=== PATIENT | female | born 1980 | race Caucasian/White ===

== ENCOUNTER 2019-09-16 21:34 | Emergency (ER) | payer SELFPAY ==
[~2019-09-16] VITALS: Ht 162.5 cm; Wt 66.7 kg
[~2019-09-16 21:34] MED LIST: AMIT50TA3 PO; CYCL10TA9 PO; GABA100T; HYDR-707 PO; HYDR1CAP2 PO; IBP200T; METH4TAB PO; OMEP20CA18 PO; PARO20TA57; PARO20TA57 PO; PROP1TAB77; ZOLP5TAB PO
[2019-09-16] MEDS ORDERED: LACTATED RINGERS 1,000 ML IV ONE ×3 (21:54→23:35)
[2019-09-16] MEDS ORDERED: ONDANSETRON 4 MG/2 ML (SDV) Z0FRAN ONE (21:55)
[2019-09-16 22:13] LABS: BASOPHILS # (AUTO) 0.1 10^3/uL (0.0-0.1); BASOPHILS % (AUTO) 1 % (0-10); EOSINOPHILS # (AUTO) 0.1 10^3/uL (0.0-0.3); EOSINOPHILS % (AUTO) 1 % (0-10); HEMATOCRIT 46 % (35-52); LYMPHOCYTES # (AUTO) 3.8 X 10^3 (1.0-4.0); LYMPHOCYTES % (AUTO) 32 % (12-44); MEAN CORPUSCULAR HEMOGLOBIN 28 PG (25-34); MEAN CORPUSCULAR HGB CONC 35 G/DL (32-36); MEAN CORPUSCULAR VOLUME 81 FL (80-99); MEAN PLATELET VOLUME 9.5 FL (7.4-10.4); MONOCYTES # (AUTO) 1.2 X 10^3 (0.0-1.0); MONOCYTES % (AUTO) 10 % (0-12); NEUTROPHILS # (AUTO) 6.9 X 10^3 (1.8-7.8); NEUTROPHILS % (AUTO) 57 % (42-75); PLATELET COUNT 347 10^3/uL (130-400); RED CELL DISTRIBUTION WIDTH 14.1 % (10.0-14.5)
[2019-09-16] MEDS ORDERED: ONDANSETRON 4 MG/2 ML (SDV) Z0FRAN IVP ONE (22:15)
[2019-09-16 22:24] LABS: FIBRIN DEGRADATION PRODUCTS 0.37 UG/ML (0.00-0.49); INR 0.9 (0.8-1.4); PROTHROMBIN TIME PATIENT 12.8 SEC (12.2-14.7)
[2019-09-16 22:29] LABS: ALANINE AMINOTRANSFERASE 16 U/L (0-55); ALBUMIN 4.2 GM/DL (3.2-4.5); ALKALINE PHOSPHATASE 103 U/L (40-136); AMYLASE 36 U/L (25-125); BILIRUBIN,TOTAL 0.3 MG/DL (0.1-1.0); BUN/CREATININE RATIO 12; CALCIUM 9.3 MG/DL (8.5-10.1); CARBON DIOXIDE 19 MMOL/L (21-32); CHLORIDE 105 MMOL/L (98-107); CREATININE SERUM 0.77 MG/DL (0.60-1.30); GFR ESTIMATED > 60; GLUCOSE 111 MG/DL (70-105); LIPASE 18 U/L (8-78); POTASSIUM 3.6 MMOL/L (3.6-5.0); SODIUM 140 MMOL/L (135-145); TOTAL PROTEIN 7.6 GM/DL (6.4-8.2)
[2019-09-16 22:32] LABS: ERYTHROCYTE SEDIMENTATION RATE 4 MM/HR (0-20)
--- NOTE | 2019-09-16 22:38 | ED General ---
General Chief Complaint: Abdominal/GI Problems Stated Complaint: HEADACHED,N/V,SOA Nursing Triage Note: pt amb to rm 9 with complaint of abd pain, n/v/d, headache, soa, and dizziness that started today. 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 Nursing Sepsis Screen: No Definite Risk Source of Information: Patient History of Present Illness Date Seen by Provider: Sep 16, 2019 Time Seen by Provider: 21:45 Initial Comments PT ARRIVES VIA POV FROM HOME, AMBULATES IN ON HER OWN WITHOUT DIFFICULTY PT WITH MULTITUDE OF COMPLAINTS STATES MAIN COMPLAINT IS HEADACHE STATES SHE HAS HAD A SLIGHT HEADACHE OFF AND ON ALL DAY, BUT IT BECAME SEVERE AROUND 1929 TONIGHT--RATES PAIN 10/10, BUT HAS NOT ATTEMPTED TO TAKE ANYTHING FOR HER HEADACHE. STATES SHE HAS HAD HEADACHES ON OCCASION, BUT NOT THIS BAD STATES THE HEADACHE IS NOW STARTING TO MAKE HER NAUSEATED AND SHE VOMITED X 10 TONIGHT STATES HER HEADACHE IS ALSO MAKING HER DIZZY HAD 3 EPISODES OF DIARRHEA YESTERDAY BUT NONE TODAY NO SIGNIFICANT ABDOMINAL PAIN, STATES NOW HER STOMACH MUSCLES ARE A LITTLE SORE FROM VOMITING STATES SHE SLEPT MOST OF THE DAY NO FEVER NO NECK PAIN OR STIFFNESS NO VISION CHANGES STATES IT ALSO MAKES HER FEEL A LITTLE SHORT OF BREATH NO COUGH NO CHEST PAIN NO PALPITATIONS NO PARESTHESIAS OR MOTOR DEFICITS HAS HAD A SLIGHT SORE THROAT HAS HAD MILD ALLERGY SYMPTOMS WITH CLEAR RUNNY NOSE, BUT NO SINUS PAIN STATES SHE WORKS AT [employer] IN [place], [place] STATES THAT "2 PEOPLE TESTED POSITIVE" FOR COVID-19 CORONAVIRUS. HOWEVER, PT STATES SHE HAS NOT WORKED FOR THE LAST 2 WEEKS, WENT BACK TO WORK ON SATURDAY AND MONDAY 09/11 AND 09/13/19 STATES SHE HAS NO IDEA IF SHE WORKED WITH OR NEAR THESE PERSONS, THEN LATER STATES THAT "THEY WERE SICK SOMETIME BEFORE THAT" BUT STATES SHE HAS "NO IDEA" WHEN THESE PEOPLE TESTED POSITIVE, AND LATER STATES "THEY SAID THEY WORKED IN A DIFFERENT AREA" PT HAS NOT TAKEN ANY OF HER MEDICATIONS TODAY PCP: STEPHANIE MENDEZ Allergies and Home Medications Allergies Coded Allergies: No Known Drug Allergies (Verified , 05/24/08) Home Medications Butalb/Acetaminophen/Caffeine 1 Each Tablet, 1-2 EACH PO Q6 Prescribed by: ALLEN PATEL on 09/16/19 4990 Cyclobenzaprine HCl 10 Mg Tablet, 10 MG PO Q8H Prescribed by: ALLEN PATEL on 12/28/15240 Methylprednisolone 4 Mg Tab.ds.pk, 4 MG PO UD Prescribed by: ALLEN PATEL on 12/28/15240 Omeprazole 20 Mg Capsule.dr, 20 MG PO DAILY, (Reported) Ondansetron 4 Mg Tab.rapdis, 4 MG PO Q4H Prescribed by: ALLEN PATEL on 09/16/192353 Zolpidem Tartrate 5 Mg Tablet, 5 MG PO HS PRN for INSOMNIA, (Reported) Patient Home Medication List Home Medication List Reviewed: Yes Review of Systems Review of Systems Constitutional: see HPI; No chills, No diaphoresis; dizziness; No fever; malaise EENTM: see HPI, throat pain, other Respiratory: see HPI; No cough, No dyspnea on exertion, No phlegm; short of breath; No wheezing Cardiovascular: no symptoms reported; No chest pain, No edema, No palpitations, No syncope Gastrointestinal: see HPI, diarrhea, nausea, vomiting Genitourinary: no symptoms reported Musculoskeletal: no symptoms reported Skin: no symptoms reported; No rash Psychiatric/Neurological: See HPI, Headache; Denies Numbness, Denies Paresthesia, Denies Seizure, Denies Tingling, Denies Tremors, Denies Weakness Hematologic/Lymphatic: No Symptoms Reported Immunological/Allergic: no symptoms reported Past Xhjykmt-Rarbol-Mrxxxz Hx Past Med/Social Hx: Reviewed and Corrections made Patient Social History Alcohol Use: Occasionally Uses Recreational Drug Use: No Smoking Status: Current Everyday Smoker (1 PPD) Type Used: Cigarettes Recent Foreign Travel: No Contact w/Someone Who Travel: No Recent Infectious Disease Expo: No Recent Hopitalizations: Yes Immunizations Up To Date Tetanus Booster (TDap): Unknown PED Vaccines UTD: Yes Past Medical History Surgeries: Yes (HYST/BSO; THORACIC SURGERY FOR NEUROFIBROMAS; X 2) Appendectomy, Section, Gallbladder, Hysterectomy, Oophorectomy, Orthopedic Respiratory: No Cardiac: Yes High Cholesterol, Hypertension Neurological: Yes (NEUROFIBROMATOSIS) 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 oz. 61.257379so; 25.00 BMI Method:Stated General Appearance: No Apparent Distress, WD/WN, Other (WALKS IN ON HER OWN. DOES NOT APPEAR TO BE IN ANY DISCOMFORT OR DISTRESS AND DOES NOT APPEAR ILL. REEKS OF CIGARETTES. ) HEENT: PERRL/EOMI, TMs Normal, Normal ENT Inspection, Pharynx Normal, Other (EDENTULOUS) Neck: Full Range of Motion, Normal Inspection, Non Tender, Supple; No Carotid Bruit, No JVD Respiratory: Chest Non Tender, Normal Breath Sounds, No Accessory Muscle Use, No Respiratory Distress Cardiovascular: Regular Rate, Rhythm, No Edema, No JVD, No Murmur, Normal Peripheral Pulses Gastrointestinal: Normal Bowel Sounds, No Organomegaly, No Pulsatile Mass, Non Tender, Soft Back: Normal Inspection, No CVA Tenderness, No Vertebral Tenderness Extremity: Normal Capillary Refill, Normal Inspection, Normal Range of Motion, Non Tender, No Calf Tenderness, No Pedal Edema Neurologic/Psychiatric: Alert, Oriented x3, No Motor/Sensory Deficits, Normal Mood/Affect, 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 Norm as Tested; No Abnormal Cerebellar Tests Reflexes: 1+ Bicep (R), 1+ Bicep (L), 1+ Knee (R), 1+ Knee (L) Skin: Normal Color, Warm/Dry; No Rash Progress/Results/Core Measures Suspected Sepsis Recent Fever Within 48 Hours: No Infection Criteria Present: None New/Unexplained Altered Menta: No Sepsis Screen: No Definite Risk SIRS Temperature: Pulse: 92 Respiratory Rate: 22 Laboratory Tests 09/16/19 21:50: White Blood Count 12.0H Blood Pressure 141 /100 Mean: 114 Laboratory Tests 09/16/19 21:50: Creatinine 0.77, INR Comment 0.9, Platelet Count 347, Total Bilirubin 0.3 Results/Orders Lab Results Laboratory Tests Test 09/16/19 21:50 09/16/19 22:56 Range/Units White Blood Count 12.0 H 4.3-11.0 10^3/uL Red Blood Count 5.75 4.35-5.85 10^6/uL Hemoglobin 16.0 11.5-16.0 G/DL Hematocrit 46 35-52 % Mean Corpuscular Volume 81 80-99 FL Mean Corpuscular Hemoglobin 28 25-34 PG Mean Corpuscular Hemoglobin Concent 35 32-36 G/DL Red Cell Distribution Width 14.1 10.0-14.5 % Platelet Count 347 130-400 10^3/uL Mean Platelet Volume 9.5 7.4-10.4 FL Neutrophils (%) (Auto) 57 42-75 % Lymphocytes (%) (Auto) 32 12-44 % Monocytes (%) (Auto) 10 0-12 % Eosinophils (%) (Auto) 1 0-10 % Basophils (%) (Auto) 1 0-10 % Neutrophils # (Auto) 6.9 1.8-7.8 X 10^3 Lymphocytes # (Auto) 3.8 1.0-4.0 X 10^3 Monocytes # (Auto) 1.2 H 0.0-1.0 X 10^3 Eosinophils # (Auto) 0.1 0.0-0.3 10^3/uL Basophils # (Auto) 0.1 0.0-0.1 10^3/uL Erythrocyte Sedimentation Rate 4 0-20 MM/HR Prothrombin Time 12.8 12.2-14.7 SEC INR Comment 0.9 0.8-1.4 Activated Partial Thromboplast Time 26 24-35 SEC D-Dimer 0.37 0.00-0.49 UG/ML Sodium Level 140 135-145 MMOL/L Potassium Level 3.6 3.6-5.0 MMOL/L Chloride Level 105 98-107 MMOL/L Carbon Dioxide Level 19 L 21-32 MMOL/L Anion Gap 16 H 5-14 MMOL/L Blood Urea Nitrogen 9 7-18 MG/DL Creatinine 0.77 0.60-1.30 MG/DL Estimat Glomerular Filtration Rate > 60 BUN/Creatinine Ratio 12 Glucose Level 111 H 70-105 MG/DL Calcium Level 9.3 8.5-10.1 MG/DL Corrected Calcium 9.1 8.5-10.1 MG/DL Magnesium Level 2.0 1.6-2.4 MG/DL Total Bilirubin 0.3 0.1-1.0 MG/DL Aspartate Amino Transf (AST/SGOT) 15 5-34 U/L Alanine Aminotransferase (ALT/SGPT) 16 0-55 U/L Alkaline Phosphatase 103 40-136 U/L Lactate Dehydrogenase 199 125-220 U/L C-Reactive Protein High Sensitivity 0.35 0.00-0.50 MG/DL Total Protein 7.6 6.4-8.2 GM/DL Albumin 4.2 3.2-4.5 GM/DL Amylase Level 36 25-125 U/L Lipase 18 8-78 U/L Serum Alcohol < 10 <10 MG/DL Monoscreen NEGATIVE NEGATIVE Group A Streptococcus Screen NEGATIVE NEGATIVE Urine Color YELLOW Urine Clarity SL CLOUDY Urine pH 6.5 5-9 Urine Specific Fisher 1.020 1.016-1.022 Urine Protein NEGATIVE NEGATIVE Urine Glucose (UA) NEGATIVE NEGATIVE Urine Ketones NEGATIVE NEGATIVE Urine Nitrite NEGATIVE NEGATIVE Urine Bilirubin NEGATIVE NEGATIVE Urine Urobilinogen 0.2 < = 1.0 MG/DL Urine Leukocyte Esterase 1+ H NEGATIVE Urine RBC (Auto) NEGATIVE NEGATIVE Urine RBC 0-2 /HPF Urine WBC 0-2 /HPF Urine Squamous Epithelial Cells 0-2 /HPF Urine Crystals NONE /LPF Urine Bacteria TRACE /HPF Urine Casts NONE /LPF Urine Mucus SMALL H /LPF Urine Culture Indicated NO Urine Opiates Screen NEGATIVE NEGATIVE Urine Oxycodone Screen NEGATIVE NEGATIVE Urine Methadone Screen NEGATIVE NEGATIVE Urine Propoxyphene Screen NEGATIVE NEGATIVE Urine Barbiturates Screen NEGATIVE NEGATIVE Ur Tricyclic Antidepressants Screen NEGATIVE NEGATIVE Urine Phencyclidine Screen NEGATIVE NEGATIVE Urine Amphetamines Screen NEGATIVE NEGATIVE Urine Methamphetamines Screen NEGATIVE NEGATIVE Urine Benzodiazepines Screen NEGATIVE NEGATIVE Urine Cocaine Screen NEGATIVE NEGATIVE Urine Cannabinoids Screen NEGATIVE NEGATIVE Micro Results Microbiology 09/16/19 Influenza Types A,B Antigen (GERARDO) - Final, Complete My Orders Orders - ALLEN PATEL DO Lactated Ringers (Lr 1000 Ml Iv Solution (09/16/19 21:54) Ondansetron Injection (Zofran Injectio (09/16/19 21:55) Ed Iv/Invasive Line Start (09/16/19 22:01) Monitor-Rhythm Ecg Trace Only (09/16/19 22:01) Ct Head Wo-R/O Stroke (09/16/19 22:01) Alcohol (09/16/19 22:01) Amylase (09/16/19 22:01) Cbc With Automated Diff (09/16/19 22:) Comprehensive Metabolic Panel (09/16/19 22:) Hs C Reactive Protein (09/16/19 22:) Fibrin Degradation Products (09/16/19 22:) Drug Screen Stat (Urine) (09/16/19 22:) Lipase (09/16/19 22:) Magnesium (09/16/19 22:) Monotest (09/16/19 22:) Protime With Inr (09/16/19:) Partial Thromboplastin Time (09/16/19 22:) Rapid Strep A Screen (09/16/19 22:) Ua Culture If Indicated (09/16/19 22:) Blood Culture (09/16/19:) Influenza A And B Antigens (09/16/19 22:) Erythrocyte Sedimentation Rate (09/16/19 22:) Chest 1 View, Ap/Pa Only (09/16/19 22:) Ondansetron Injection (Zofran Injectio (09/16/19 22:15) Ed Iv/Invasive Line Start (09/16/19 22:01) Lactated Ringers (Lr 1000 Ml Iv Solution (09/16/19 22:01) LDH (09/16/19 22:01) Coronavirus Sars-Cov-2 So 2018 (09/16/19 22:01) Ketorolac Injection (Toradol Injection) (09/16/19 23:45) Orphenadrine Injection (Norflex Injectio (09/16/19 23:45) Ed Iv/Invasive Line Start (09/16/19 23:35) Lactated Ringers (Lr 1000 Ml Iv Solution (09/16/19 23:35) Medications Given in ED Current Medications Medications Dose Ordered Sig/Nikkie Route Start Time Stop Time Status Last Admin Dose Admin Ketorolac Tromethamine 30 mg ONCE ONCE IVP 09/16/19 23:45 09/16/19 23:46 DC 09/17/19 00:32 30 MG Lactated Ringer's 1,000 ml @ ud STK-MED ONCE IV 09/16/19 21:54 09/16/19 21:56 DC 09/16/19 22:02 1,000 MLS/HR Ondansetron HCl 4 mg STK-MED ONCE .ROUTE 09/16/19 21:55 09/16/19 21:57 DC 09/16/19 22:02 4 MG Orphenadrine Citrate 60 mg ONCE ONCE IV 09/16/19 23:45 09/16/19 23:46 DC 09/17/19 00:32 60 MG Vital Signs/I&O 09/16/19 09/16/19 09/17/19 21:41 23:18 00:33 Temp 36.6 Pulse 92 98 68 Resp 22 18 16 B/P (MAP) 141/100 (114) 111/53 (72) 112/68 Pulse Ox 98 97 99 O2 Delivery Room Air Room Air Room Air Capillary Refill : Less Than 3 Seconds Blood Pressure Mean: 114 Progress Note : Progress Note COVID -19 TESTING PERFORMED, PPE WORN AT ALL TIMES SYMPTOMS IMPROVED AT DISMISSAL Diagnostic Imaging Comments CXR--NO ACUTE PROCESS, PENDING RADIOLOGIST REVIEW CT HEAD--NO ACUTE PROCESS, PER [facility] VIA FAX AT 4 Reviewed: Reviewed by Me Departure Impression Primary Impression: Headache Additional Impression: COVID P.U.I. Disposition: HOME, SELF-CARE Condition: Improved Departure-Patient Inst. Referrals: SELINA REBOLLEDO MD (PCP/Family) Primary Care Physician Patient Instructions: Coronavirus Disease 2019 (COVID-19) (DC), Headache, Adult (DC) Add. Discharge Instructions: HOME, REST LOTS OF CLEAR LIQUIDS TYLENOL AND MOTRIN NEEDED FOR PAIN YOU AND ALL [employer]ERS NEED TO QUARANTINE FOR THE NEXT 2 WEEKS OR UNTIL RELEASED BY HEALTH DEPARTMENT FOLLOW UP WITH [facility] IN 2-3 DAYS IF NO BETTER, RETURN TO ER IF WORSE All discharge instructions reviewed with patient and/or family. Voiced understanding. Scripts Ondansetron (Ondansetron Odt) 4 Mg Tab.rapdis 4 MG PO Q4H for Nausea/Vomiting, #10 TAB Prov: ALLEN PATEL DO 09/16/19 Butalb/Acetaminophen/Caffeine (Esgic 50-325-40 mg Tablet) 1 Each Tablet 1-2 EACH PO Q6, #10 TAB Prov: ALLEN PATEL DO 09/16/19 ALLEN PATEL DO Sep 16, 2019 22:38
[2019-09-16 23:18] VITALS: BP 111/53
[2019-09-16] MEDS ORDERED: ORPHENADRINE 60 MG/2 ML (NORFLEX) AMP (ED ONLY) IV ONE (23:45)
[2019-09-16] MEDS ORDERED: KETOROLAC 30 MG/ML VIAL IVP ONE (23:45)
[2019-09-16 23:49] LABS: BILIRUBIN,URINE NEGATIVE (NEGATIVE); CLARITY,URINE SL CLOUDY; COLOR,URINE YELLOW; GLUCOSE, URINE (UA) NEGATIVE (NEGATIVE); KETONES,URINE NEGATIVE (NEGATIVE); LEUKOCYTE ESTERASE ,URINE 1+ (NEGATIVE); NITRITE,URINE NEGATIVE (NEGATIVE); PH,URINE 6.5 (5-9); PROTEIN,URINE NEGATIVE (NEGATIVE)
[2019-09-16] MEDS ORDERED: BUTA-249 PO (23:54)
[2019-09-16] MEDS ORDERED: ONDA4TAB11 PO (23:54)
[2019-09-16 23:59] LABS: RBC,URINE 0-2 /HPF
[2019-09-17] LABS: BACTERIA,URINE TRACE /HPF; SQUAMOUS EPITHELIAL CELL,UR 0-2 /HPF; WBC,URINE 0-2 /HPF
[2019-09-17 00:10] LABS: AMPHETAMINE SCREEN, URINE NEGATIVE (NEGATIVE); BARBITURATE SCREEN URINE NEGATIVE (NEGATIVE); BENZODIAZEPINES SCREEN URINE NEGATIVE (NEGATIVE); CANNABINOID SCREEN, URINE NEGATIVE (NEGATIVE); COCAINE SCREEN URINE NEGATIVE (NEGATIVE); METHADONE STAT NEGATIVE (NEGATIVE); METHAMPHETAMINE SCREEN URINE S NEGATIVE (NEGATIVE); OPIATE SCREEN URINE NEGATIVE (NEGATIVE); OXYCODONE STAT NEGATIVE (NEGATIVE); PROPOXYPHENE STAT NEGATIVE (NEGATIVE); TRICYCLIC ANTIDEPRESSANTS SCRE NEGATIVE (NEGATIVE)
[2019-09-17 00:33] VITALS: BP 112/68
--- NOTE | 2019-09-17 05:36 | Diagnostic Imaging Report ---
PROCEDURE: CT head wo r/o stroke. TECHNIQUE: Multiple contiguous axial images were obtained through the brain without the use of intravenous contrast. Auto Exposure Controls were utilized during the CT exam to meet ALARA standards for radiation dose reduction. INDICATION: Headache There is no mass, shift of the midline or hemorrhage to suggest an acute intracranial abnormality. The ventricles are not abnormally dilated and stable in size when compared to the prior exam of 08/04/09. The bone windows show no evidence for a fracture or for a destructive lesion. The orbits are symmetrical and within normal limits. The sinuses, where visualized, are generally clear. IMPRESSION: 1. There is no evidence for an acute intracranial abnormality. 2. If clinical concern regarding an underlying abnormality persists, then MRI would be recommended for further study. Dictated by: Dictated on workstation # [id number]
--- NOTE | 2019-09-17 05:43 | Diagnostic Imaging Report ---
EXAMINATION: Portable erect AP chest at 1053 PM INDICATION: Shortness of breath The heart size is within normal limits and stable when compared to 12/28/2015. There are few carotid bronchovascular markings in both lung bases but there is no evidence for failure, pneumonia or for pleural effusion. The mediastinum is not widened. The osseous structures are intact. IMPRESSION: There is no evidence for active disease. Dictated by: Dictated on workstation # [id number]
== END 2019-09-17 00:34 | disposition home or self-care (01) ==
LOC: EDUNIT# 21:34 → ER 21:37
DX: R51 Headache (principal); K21.9 Gastro-esophageal reflux disease without esophagitis; F17.210 Nicotine dependence, cigarettes, uncomplicated; Z20.828 Contact with and (suspected) exposure to other viral communicable diseases; Z79.52 Long term (current) use of systemic steroids
CPT/HCPCS: 36415; 70450; 71045; 80053; 80306; 80320; 81000; 82150; 83615; 83690; 83735; 85025; 85379; 85610; 85652; 85730; 86141; 86308; 87040; 87430; 87635; 87804; 93041; 96374; 96375

== ENCOUNTER → 2022-09-05 | Outpatient (CLI) | payer OTHER ==
[~2022-09-05] MED LIST changes: +BARIUM for suspension 96% w/w (Vanilla Silq Medium Density) PO ONE; +BARIUM for suspension 98% w/w (Vanilla Silq High Density) PO ONE; +BUTA-249 PO; +CYCL10TA25 PO; -CYCL10TA9 PO; +ONDA4TAB11 PO
--- NOTE | 2022-09-06 10:40 | Diagnostic Imaging Report ---
INDICATION: Hiatal hernia and acid reflux. Patient ingested effervescent crystals as well as thin and thick barium and imaging over the esophagus, stomach and proximal small bowel was performed. 61 seconds of fluoroscopic time was utilized. The esophagus has a smooth contour. No mass or stricture is identified. No gastroesophageal reflux was demonstrated. No significant hiatal hernia is identified. The stomach has a normal configuration. No mass or ulceration is identified. The duodenal bulb is without deformity. There is prompt emptying into the small bowel which appears unremarkable. IMPRESSION: Unremarkable upper GI study. Dictated by: Dictated on workstation # [id number]
== END ==
LOC: RAD 08:24
PROVIDERS: ATTEND Surgery
DX: K44.9 Diaphragmatic hernia without obstruction or gangrene (principal); K21.9 Gastro-esophageal reflux disease without esophagitis
CPT/HCPCS: 74246